=== PATIENT | male | born 1945 | race Caucasian/White ===

== ENCOUNTER 2019-06-03 16:34 | Observation (INO) | payer BC, SELFPAY ==
--- NOTE | ~2019-06-03 | US_ITS ---
EXAMINATION: US venous doppler LE RT DATE: 06/03/2019 17:14 INDICATION: Right lower limb swelling TECHNIQUE: Cardozo scale images without and with compression and Doppler images of the right lower extre mity veins were obtained. COMPARISON: None. FINDINGS: The right common femoral vein, profunda femoral vein, femoral vein, popliteal vein, peronea l trunk, posterior tibial veins, and greater saphenous vein are patent. A Schneider's cyst is noted which measures 3.3 x 1.9 cm. IMPRESSION: 1. Patent right lower extremity veins. No evidence of deep venous thrombosis. Reviewed, dictated and finalized at location A.
[2019-06-03 16:36] VITALS: BP 161/94; PULSE 80; RESP 18; TEMP 36.6; O2SAT 98
--- NOTE | 2019-06-03 16:56 | ED.LOWEXIN ---
HPI - Extremity Injury (Lower) General Chief Complaint: Extremity Injury, Lower <Bud Day PA-C - Last Filed: 06/03/19 19:27> Stated Complaint: right knee pain and swelling <Bud Day PA-C - Last Filed: 06/03/19 19:27> Time Seen by Provider: 06/03/19 16:41 <Bud Day PA-C - Last Filed: 06/03/19 19:27> Source: patient and family <Bud Day PA-C - Last Filed: 06/03/19 19:27> Mode of arrival: ambulatory <LIDA Montes Last Filed: 06/03/19 19:27> Limitations: no limitations <LIDA Montes Last Filed: 06/03/19 19:27> History of Present Illness HPI Narrative: Patient presents with chief complaint of swelling and pain to the lower thigh to the ankle of the right leg. Patient states the area has become more red and swollen. Patient states that he thought that it was getting better but his feels it was worsening so she made him come to the emergency department. 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 Patient reports that this week he has had some fever. Patient reports taking Dang back and body 2 tablets the past few days for his symptoms. Patient denies history of DVT or PE. Patient denies having diabetes. Patient reports his only medical diagnosis is hypertension. <LIDA Montes Last Filed: 06/03/19 19:27> Related Data Home Medications: Home Medications Medication Instructions Recorded Confirmed qjmovneq-yim-WN-lycopen-lutein 1 tablet PO DAILY 06/03/19 06/03/19 [Complete Multi 50+] omega 6-cxe-qxu-fish oil [Fish Oil] 1 cap PO DAILY 06/03/19 06/03/19 <LIDA Montes Last Filed: 06/03/19 19:27> Allergies/Adverse Reactions: Allergies Allergy/AdvReac Type Severity Reaction Status Date / Time No Known Allergies Allergy Unknown Unverified 06/03/19 17:36 <Bud Day PA-C - Last Filed: 06/03/19 19:27> Review of Systems Review of Systems: Narrative: CONSTITUTIONAL: Denies fever, chills, or sweats. EYES: Denies visual changes, redness, or discharge. ENT: Denies rhinorrhea, congestion, sore throat, or otalgia. CARDIOVASCULAR: Denies chest pain, palpitations, or edema. RESPIRATORY: Denies cough or dyspnea. GASTROINTESTINAL: Denies abdominal pain, nausea, vomiting, or diarrhea. GENITOURINARY: Denies dysuria or hematuria. SKIN: Reports swelling erythema and pain to right leg MUSCULOSKELETAL: Denies back pain, joint pain, or myalgia. NEUROLOGIC: Denies headache, numbness, dizziness, or weakness. PSYCHIATRIC: Denies anxiety or depression. <Bud Day PA-C - Last Filed: 06/03/19 19:27> [facility] Past Medical History Medical History: Medical History (Updated 06/03/19 @ 22:43 by Autumn Carvalho DO) BPH (benign prostatic hyperplasia) Dyslipidemia, goal LDL below 100 Essential (primary) hypertension Resolved after losing 100 lb Hypercholesterolemia Obstructive sleep apnea (adult) (pediatric) Patient had a repeat sleep study after losing 100 lb. His last sleep study May 2016 was negative for sleep apnea Overweight (10/03/16) Prediabetes Umbilical hernia <Bud Day PA-C - Last Filed: 06/03/19 19:27> Surgical History Surgical History: Surgical History History of laparoscopic cholecystectomy <Bud Day PA-C - Last Filed: 06/03/19 19:27> Family History Family History: Family History (Updated 06/03/19 @ 22:56 by Autumn Carvalho DO) Mother Morbid obesity Patient is adopted so family history is limited. His half-sister told him that his mother of complications of a leg surgery at 60 years old and was morbidly obese. Daughter Asthma <Bud Day PA-C - Last Filed: 06/03/19 19:27> Social History Social History: Social History (Updated 06/03/19 @ 22:46 by Autumn Carvalho DO) Social History:
[2019-06-03 17:03] LABS: Basophils Percent Auto 0.2 % (0.2-1.2); Eosinophils Absolute Auto 0.2 K/mm3 (0-0.3); Eosinophils Percent Auto 1.8 % (0-4.4); Hematocrit 35.5 % (42.0-52.0); Immature Granulocyte Percent A 1.1 % (0-0.5); Lymphocytes Absolute Auto 1.28 K/mm3 (0.9-3.2); Lymphocytes Percent Auto 13.8 % (18.3-44.2); Mean Corpuscular HGB Conc 33.8 g/dl (32-36); Mean Corpuscular Hemoglobin 30.8 pg (26-34); Mean Corpuscular Volume 91.3 fl (80-100); Mean Platelet Volume 9.6 fl (7.4-10.4); Monocytes Absolute Auto 0.8 K/mm3 (0.1-0.6); Monocytes Percent Auto 8.6 % (2.6-8.5); Neutrophils Absolute Auto 6.9 K/mm3 (1.3-6.7); Neutrophils Percent Auto 74.5 % (45.5-73.1); Platelet Count Result 401 k/mm3 (150-375); Red Blood Count 3.89 M/mm3 (4.6-6.20); Red Cell Distribution Width 12.4 % (11.5-14.5); White Blood Count 9.3 K/mm3 (4.5-10.0)
[2019-06-03 17:13] LABS: Alanine Aminotransferase 20 U/L (4-50); Albumin Level 3.8 g/dL (3.5-5.1); Alkaline Phosphatase 76 U/L (38-126); Aspartate Amino Transferase 25 U/L (17-59); Bilirubin,Total 0.2 mg/dL (0.2-1.3); Blood Urea Nitrogen 19 mg/dL (9-20); Calcium 8.8 mg/dL (8.4-10.2); Carbon Dioxide 28 mmol/L (22-30); Chloride 103 mmol/L (98-107); Estimated CRCL calculation 77 ml/min; Estimated Glomerular Filt Rate > 60; Glucose 124 mg/dL (75-110); Potassium 4.1 mmol/L (3.4-5.0); Sodium 137 mmol/L (137-145)
[2019-06-03 18:11] VITALS: BP 133/78; PULSE 64; RESP 18; O2SAT 95
[2019-06-03 19:39] VITALS: BP 141/88; PULSE 67; RESP 18; O2SAT 99
[2019-06-03 20:02] VITALS: BMI 31.3
--- NOTE | 2019-06-03 20:09 | ADMGEN ---
This patient, Lev Winchester, was admitted to Medical Room 341-01. Patient/family oriented to hospital policies and general routines including ID bracelet, bed and alarms, visiting hours, pain management, procedures, bathroom and other care routines, personal items, smoking policy, room service/diet, and visiting hours. Valuables list has been completed. Information on how to activate the Rapid Response Team has been discussed. Patient/Family are encouraged to report perceived risks to care and to ask questions if they do not understand what they are told or what they should do.
[2019-06-03 20:18] VITALS: BP 156/80; PULSE 61; RESP 14; TEMP 36.6; O2SAT 98
--- NOTE | 2019-06-03 21:10 | PM.IMHP ---
H&P: [facility] History of Present Illness Chief complaint: Right leg redness and swelling Narrative: Date and time of patient contact: 06/03/2019 at 9:30 p.m. Lev Winchester is a 73 year old male with a past medical history of varicose veins, obesity and prediabetes who presented to the ER via private vehicle from home due to right leg redness, swelling and heat for the last 2.5 weeks. The patient called his primary care physician after his had noticed the redness on his leg. The patient was directed to come to the ER. He reports that he has been busy for the last couple of weeks putting new saul in his home. He had been up been down on his knees. He noticed some swelling to his right lower extremity and right knee. The right knee was initially so swollen that it was tight. He reports that initially he had erythema extending from his mid rangel up over his knee. However a few days ago the erythema had receded from his knee and was only on his rangel. Over the last 4 5 days he was having some chills but had checked his temperature and it was normal. He thought that his symptoms were due to being on his knees a lot and found to way to finish his floor work without kneeling. He thought that this has seemed to help his symptoms. He finished his floor a few days ago and has been relaxing more. Since he has been relaxing and keeping his legs up falling on the couch he has noticed that his leg swelling has improved and the erythema had receded from his knee as discussed above. He reports that when he came into the ER his lower leg was so swollen that he could not even see is varicose veins. He thinks the erythema and swelling has improved since he came to the ER. The patient had previously been morbidly obese but had lost 100 lb over the course of 4 5 years. With the weight loss he has been able to discontinue his antihypertensives. It also had a repeat sleep study in 2017 which demonstrated resolution of his obstructive sleep apnea. He states that he is no longer prediabetic since losing weight. He also reports that his cholesterol has normalized with weight loss. He does have some decreased urinary stream that occurs mostly at night. He gets up approximately twice a night to urinate. Review of Systems Review of Systems: Narrative: Except as documented in the HPI, all other systems were reviewed and are negative. ON LICENSE OF [facility] Past Medical History Medical History (Updated 06/03/19 @ 22:43 by Autumn Carvalho DO) BPH (benign prostatic hyperplasia) Dyslipidemia, goal LDL below 100 Essential (primary) hypertension Resolved after losing 100 lb Hypercholesterolemia Obstructive sleep apnea (adult) (pediatric) Patient had a repeat sleep study after losing 100 lb. His last sleep study May 2016 was negative for sleep apnea Overweight (10/03/16) Prediabetes Umbilical hernia Surgical History Surgical History History of laparoscopic cholecystectomy Family History Family History (Updated 06/03/19 @ 22:56 by Autumn Carvalho DO) Mother Morbid obesity Patient is adopted so family history is limited. His half-sister told him that his mother of complications of a leg surgery at 60 years old and was morbidly obese. Daughter Asthma Social History Social History (Updated 06/03/19 @ 22:46 by Autumn Carvalho DO) Social History: Primary care physician: Dr. Juan Cruz Code status: Full code Smoking status: Never smoker Alcohol intake: current Drinks per week: 1 Alcohol use details: 1 beer a month. Substance use: never Living arrangements: with family Additional living arrangements comments: He lives in [place] with his of 54 years. They have a boxer at home. He has 2 adult children. His daughter has asthma. Occupation/Education: retired Additional occupation/education comments: He retired from the post office in 2001.
[2019-06-04 05:34] VITALS: BP 126/61; PULSE 61; RESP 16; TEMP 36.4; O2SAT 97
[2019-06-04 05:37] LABS: Basophils Percent Auto 0.4 % (0.2-1.2); Eosinophils Absolute Auto 0.2 K/mm3 (0-0.3); Eosinophils Percent Auto 2.3 % (0-4.4); Hematocrit 33.2 % (42.0-52.0); Hemoglobin 11.2 g/dL (14.0-18.0); Immature Granulocyte Absolute 0.09 K/mm3 (0.00-0.031); Immature Granulocyte Percent A 1.2 % (0-0.5); Lymphocytes Percent Auto 17.6 % (18.3-44.2); Mean Corpuscular HGB Conc 33.7 g/dl (32-36); Mean Corpuscular Hemoglobin 31.2 pg (26-34); Mean Corpuscular Volume 92.5 fl (80-100); Mean Platelet Volume 9.3 fl (7.4-10.4); Monocytes Absolute Auto 0.7 K/mm3 (0.1-0.6); Monocytes Percent Auto 9.7 % (2.6-8.5); Neutrophils Absolute Auto 5.1 K/mm3 (1.3-6.7); Neutrophils Percent Auto 68.8 % (45.5-73.1); Platelet Count Result 376 k/mm3 (150-375); Red Blood Count 3.59 M/mm3 (4.6-6.20); Red Cell Distribution Width 12.1 % (11.5-14.5); White Blood Count 7.4 K/mm3 (4.5-10.0)
[2019-06-04 06:20] LABS: CRP 11.9 mg/dL (<1.0)
[2019-06-04 08:49] VITALS: RESP 16; O2SAT 97
[2019-06-04] MEDS: OPTI-GEN TAB 1 TABLET PO (08:49)
[2019-06-04] MEDS: OMEGA 3 POLYUNSAT FATTY ACIDS 1 GM CAP PO (08:49)
--- NOTE | 2019-06-04 12:17 | PM.IMPN ---
Progress Note: A&P Assessment and Plan (1) Cellulitis of leg, right: Code(s): L03.115 - Cellulitis of right lower limb Status: Acute Assessment and Plan: The patient had been having worsening erythema and swelling for the last 2 weeks. Patient was started on IV cefazolin in the emergency department and he has not received 24 hours of the medication at this point. Patient's initial CBC showed no leukocytosis but elevated neutrophils. Repeat CBC this morning showed neutrophils normalized. Blood cultures pending. Continuing to monitor the patient's erythema and swelling at this point since there is not much improvement at this time. Continue monitoring over the next 1-2 days and if improving can switch to oral antibiotics and he can be discharged home. Time Spent With Patient Time with patient: 25 - 35 minutes Subjective Date/time seen: 06/04/19 12:17 Interval history: Date of service 06/04/2019: He reports feeling better today and noticing only slight improvement of his leg swelling and redness since admission. He has been able to move his knee more but his right lower extremity is still warm, red and swollen. He denies any fevers or chills at this time. He is eating and drinking without any issues. He denies any chest pain, shortness of breath, cough, rhinorrhea, nausea, vomiting, abdominal pain, constipation, diarrhea, calf pain or any other symptoms at this time. Review of Systems Review of Systems: All systems reviewed & are unremarkable except as noted in HPI and below Exam Narrative: Exam Narrative: General: 73-year-old man sitting up in bed eating lunch with his at bedside. Appears comfortable. In no acute distress. Skin: See lower extremity. no jaundice or cyanosis. Good skin turgor. Neck: Full range of motion. Supple. Respiratory: Lungs are clear to auscultation bilaterally. No bony chest wall tenderness. Cardiovascular: The heart has a regular rate and rhythm without murmur. Lower extremities: Right lower extremity with 2 to 3+ pitting edema, erythema noted to anterior proximal rangel measuring about 10 cm long and 7 cm wide , then with light erythema noted around lateral calf and slight extension to medial calf. No trauma noted, open wounds, weeping wounds. No left lower extremity edema. Distal pulses are easily palpated. No calf tenderness to palpation. Gastrointestinal: The abdomen is soft, nontender and nondistended with active bowel sounds. Psychiatric: Lucid and oriented. Memory intact. Neurologic: No focal deficits. Speech is clear. No facial drooping. Objective Data Vital Signs Vital Signs: Vital Signs - 24 hr 06/03/19 16:36 06/03/19 18:11 06/03/19 19:39 Temperature 97.8 F Pulse Rate 80 64 67 Respiratory Rate 18 18 18 Blood Pressure 161/94 H 133/78 141/88 H Pulse Oximetry 98 95 99 06/03/19 20:18 06/04/19 05:34 Temperature 97.8 F 97.6 F Pulse Rate 61 61 Respiratory Rate 14 16 Blood Pressure 156/80 H 126/61 Pulse Oximetry 98 97 Intake/Output Intake/Output: Intake & Output 06/01/19 06/02/19 06/03/19 06/04/19 23:59 23:59 23:59 23:59 Intake Total 562 Output Total 975 Balance -413 Meds/Results Medications: Active Medications Generic Name Dose Route Start Last Admin Trade Name Freq PRN Reason Stop Dose Admin Fish Oil 1 gm 06/04/19 09:00 06/04/19 08:49 Lovaza PO 1 gm DAILY LARRY Administration Cefazolin Sodium 1 gm in 50 mls @ 100 mls/hr 06/04/19 08:00 06/04/19 09:20 Ancef 1 Gm/D5w 50 Ml Pm IVPB Infused Q8HR LARRY Infusion Multivitamins/Minerals 1 tablet 06/04/19 09:00 06/04/19 08:49 Ocuvite PO 1 tablet DAILY LARRY Administration Radiology Results: ITS Impressions Venous Doppler Study 06/03/19 17:28 IMPRESSION: 1. Patent right lower extremity veins. No evidence of deep venous thrombosis. Labs Labs: Laboratory Results - last 24 hr 06/03/19 06/03/19 06/04/19 16:54 16:54
[2019-06-04 14:00] VITALS: BP 137/71; PULSE 59; RESP 18; TEMP 36.2; O2SAT 97
[2019-06-04 20:00] VITALS: PULSE 60; RESP 16; O2SAT 97
[2019-06-04 20:40] VITALS: BP 137/74; PULSE 60; RESP 16; TEMP 36.8; O2SAT 97
[2019-06-05 06:00] VITALS: BP 135/81; PULSE 74; RESP 16; TEMP 36.3; O2SAT 96
[2019-06-05 06:38] LABS: Basophils Percent Auto 0.3 % (0.2-1.2); Eosinophils Absolute Auto 0.1 K/mm3 (0-0.3); Hematocrit 37.9 % (42.0-52.0); Hemoglobin 12.6 g/dL (14.0-18.0); Immature Granulocyte Absolute 0.09 K/mm3 (0.00-0.031); Immature Granulocyte Percent A 0.8 % (0-0.5); Lymphocytes Absolute Auto 1.58 K/mm3 (0.9-3.2); Lymphocytes Percent Auto 14.2 % (18.3-44.2); Mean Corpuscular HGB Conc 33.2 g/dl (32-36); Mean Corpuscular Hemoglobin 30.7 pg (26-34); Mean Corpuscular Volume 92.4 fl (80-100); Mean Platelet Volume 9.8 fl (7.4-10.4); Monocytes Absolute Auto 0.7 K/mm3 (0.1-0.6); Monocytes Percent Auto 6.2 % (2.6-8.5); Neutrophils Absolute Auto 8.6 K/mm3 (1.3-6.7); Neutrophils Percent Auto 77.5 % (45.5-73.1); Platelet Count Result 444 k/mm3 (150-375); Red Cell Distribution Width 12.3 % (11.5-14.5); White Blood Count 11.1 K/mm3 (4.5-10.0)
[2019-06-05 06:57] LABS: CRP 7.6 mg/dL (<1.0)
[2019-06-05] MEDS: OMEGA 3 POLYUNSAT FATTY ACIDS 1 GM CAP PO (08:05)
[2019-06-05] MEDS: OPTI-GEN TAB 1 TABLET PO (08:05)
--- NOTE | 2019-06-05 09:15 | PM.DS ---
DS: Diagnosis Admitting Diagnosis Admitting Diagnosis: Cellulitis of right lower limb Discharge Diagnosis (1) Cellulitis of leg, right: Code(s): L03.115 - Cellulitis of right lower limb Status: Acute Assessment and Plan: The patient had been having worsening erythema and swelling for the last 2 weeks. Patient was started on IV cefazolin in the emergency department Today, he reports much improvement to the warmth and erythema to his leg. He is otherwise asymptomatic. The patients leukocytosis increased to 11,100 and neutrophils elevated to 77%, but clinically his leg is improving and he is feeling much better. The patients CRP improved from 11.9 to 7.6 showing improvement. At this point, since the patient is clinically improving, will have him discharge home with PO Keflex for 7 more days and have him follow up with his PCP for further evaluation. Blood cultures show no growth at this time. The patient understands and agrees with the plan at this time for discharge. All questions answered. DS: Summary Hospital Course Reason for hospitalization: The patient is a 73-year-old man who is on no chronic medications, presented to the emergency department with a 2 week history of increased swelling, erythema and warmth after working on his knees putting down new saul. Initial vitals showed temperature of 97.8?, blood pressure 161/94, heart rate 80, respiratory rate 18, oxygen saturation 98% on room air. Initial labs showed no leukocytosis with WBC at 9300 elevated neutrophils at 74%, slight anemia with a hemoglobin of 12/hematocrit 35.5%, normal CMP other than glucose at 124. CRP was checked which showed it was elevated 11.9, repeat CRP today was 7.6. Venous Doppler showing no DVT to the right lower extremity. The patient was started on IV Ancef with improvement of his erythema, swelling and warmth since admission. He is otherwise asymptomatic at this time it will be discharged home on oral Keflex for another 7 days. Instructed to follow-up with primary care provider within 1-2 weeks for further evaluation treatment. Blood cultures have been ordered and show no growth at this time. The patient understands agrees the plan at this time for discharge on oral antibiotics. Status at Discharge Cognitive/behavioral status at discharge: Stable, improved. Time Spent with Patient Time attestation: Total time spent providing and/or coordinating discharge services: Time spent: Greater than 30 minutes Exam Narrative: Exam Narrative: General: 73-year-old man sitting up in bed eating breakfast and watching TV. Appears comfortable. In no acute distress. Skin: See lower extremity. no jaundice or cyanosis. Good skin turgor. Neck: Full range of motion. Supple. Respiratory: Lungs are clear to auscultation bilaterally. No bony chest wall tenderness. Cardiovascular: The heart has a regular rate and rhythm without murmur. Lower extremities: Right lower extremity with 1-2+ pitting edema, much improved erythema 6 cm long and 4 cm wide, with much improved, barely noticeable erythema noted around lateral calf and in no erythema noticed to medial calf. No trauma noted, open wounds, weeping wounds. No left lower extremity edema. Distal pulses are easily palpated. No calf tenderness to palpation. Gastrointestinal: The abdomen is soft, nontender and nondistended with active bowel sounds. Psychiatric: Lucid and oriented. Memory intact. Neurologic: No focal deficits. Speech is clear. No facial drooping. DS: Data Data Completed and Pending Labs on day of discharge: Labs from last 24 hours 06/05/19 06/05/19 05:44 05:44 WBC 11.1 H RBC 4.10 L Hgb 12.6 L Hct 37.9 L MCV 92.4 MCH 30.7 MCHC 33.2 RDW 12.3 Plt Count 444 H MPV 9.8 Immature Gran % (Auto) 0.8 H Neut % (Auto) 77.5 H Lymph % (Auto) 14.2 L [place] % (Auto) 6.2 Eos % (Auto) 1.0 Baso % (Auto)
--- NOTE | 2019-06-15 11:07 | PC.NURSE ---
Aerobic bottle only growing Roseomonas species. IDA Lovell aware.
== END 2019-06-05 11:10 | disposition home or self-care (01) ==
LOC: ANHED 19:06 → ANH3MED 19:20
PROVIDERS: Internal Medicine; Physician Assistant; Admitting Provider Hospitalist; Emergency Provider Emergency Medicine; PCP Internal Medicine; Visit Provider Internal Medicine
DX: L03.115 Cellulitis of right lower limb (principal)
CPT/HCPCS: 36415; 80053; 85025; 86140; 87040; 87077; 93971; 96365; 96366; 99285; A9270; G0378; J0690

== ENCOUNTER 2019-09-23 07:37 | Outpatient (CLI) | payer BC, SELFPAY ==
[2019-09-23 07:55] LABS: Hematocrit 38.8 % (42.0-52.0); Hemoglobin 13.2 g/dL (14.0-18.0); Mean Corpuscular Hemoglobin 30.8 pg (26-34); Mean Corpuscular Volume 90.4 fl (80-100); Mean Platelet Volume 9.7 fl (7.4-10.4); Platelet Count Result 199 k/mm3 (150-375); Red Blood Count 4.29 M/mm3 (4.6-6.20); Red Cell Distribution Width 12.9 % (11.5-14.5); White Blood Count 4.9 K/mm3 (4.5-10.0)
[2019-09-23 08:13] LABS: Alanine Aminotransferase 17 U/L (4-50); Albumin Level 4.3 g/dL (3.5-5.1); Alkaline Phosphatase 53 U/L (38-126); Aspartate Amino Transferase 25 U/L (17-59); Bilirubin,Total 0.5 mg/dL (0.2-1.3); Blood Urea Nitrogen 16 mg/dL (9-20); Calcium 8.8 mg/dL (8.4-10.2); Carbon Dioxide 27 mmol/L (22-30); Chloride 104 mmol/L (98-107); Cholesterol 173 mg/dL (0-200); Estimated Glomerular Filt Rate > 60; Glucose 105 mg/dL (75-110); HDL Direct 55 mg/dL; Sodium 137 mmol/L (137-145); Triglycerides 70 mg/dL (<150)
[2019-09-23 08:24] LABS: LDL Cholesterol Direct 89 mg/dL
[2019-09-23 11:07] LABS: Prostate Specific Antigen 5.4 ng/mL (< OR = 4.0)
== END 2019-09-23 07:38 | disposition home or self-care (01) ==
PROVIDERS: PCP Internal Medicine; Visit Provider Nurse Practitioner
DX: E78.5 Hyperlipidemia, unspecified (principal); I10 Essential (primary) hypertension; R97.20 Elevated prostate specific antigen [PSA]
CPT/HCPCS: 36415; 80053; 80061; 84153; 85027

== ENCOUNTER 2019-12-31 08:14 | Outpatient (CLI) | payer BC, SELFPAY ==
[2019-12-31 09:22] LABS: Prostate Specific Antigen 3.5 ng/mL (< OR = 4.0)
== END 2019-12-31 08:15 | disposition home or self-care (01) ==
PROVIDERS: PCP Internal Medicine; Visit Provider Internal Medicine
DX: R97.20 Elevated prostate specific antigen [PSA] (principal)
CPT/HCPCS: 36415; 84153

== ENCOUNTER 2020-03-29 07:10 | Outpatient (CLI) | payer BC, SELFPAY ==
[2020-03-29 07:44] LABS: Anion Gap 5 mmol/L (8-16); Blood Urea Nitrogen 18 mg/dL (9-20); Carbon Dioxide 30 mmol/L (22-30); Chloride 106 mmol/L (98-107); Cholesterol 178 mg/dL (0-200); Estimated Glomerular Filt Rate > 60; Glucose 102 mg/dL (75-110); HDL Direct 64 mg/dL; Hemoglobin A1C 5.5 % (<5.7); Potassium 4.2 mmol/L (3.4-5.0); Sodium 141 mmol/L (137-145); Triglycerides 91 mg/dL (<150)
[2020-03-29 07:55] LABS: LDL Cholesterol Direct 83 mg/dL
[2020-03-29 08:15] LABS: Prostate Specific Antigen 3.8 ng/mL (< OR = 4.0)
== END 2020-03-29 07:11 | disposition home or self-care (01) ==
PROVIDERS: PCP Internal Medicine; Visit Provider Internal Medicine
DX: I10 Essential (primary) hypertension (principal); R73.03 Prediabetes; R97.20 Elevated prostate specific antigen [PSA]; E78.5 Hyperlipidemia, unspecified
CPT/HCPCS: 36415; 80048; 80061; 83036; 84153

== ENCOUNTER 2020-09-26 07:12 | Outpatient (CLI) | payer BC, SELFPAY ==
[2020-09-26 08:11] LABS: Alanine Aminotransferase 22 U/L (4-50); Albumin Level 4.6 g/dL (3.5-5.1); Alkaline Phosphatase 55 U/L (38-126); Anion Gap 7 mmol/L (8-16); Aspartate Amino Transferase 26 U/L (17-59); Bilirubin,Total 0.6 mg/dL (0.2-1.3); Blood Urea Nitrogen 12 mg/dL (9-20); Calcium 9.5 mg/dL (8.4-10.2); Carbon Dioxide 26 mmol/L (22-30); Chloride 106 mmol/L (98-107); Cholesterol 202 mg/dL (0-200); Estimated Glomerular Filt Rate > 60; Glucose 112 mg/dL (75-110); HDL Direct 61 mg/dL; Potassium 4.3 mmol/L (3.4-5.0); Sodium 139 mmol/L (137-145); Triglycerides 100 mg/dL (<150)
[2020-09-26 08:14] LABS: Hemoglobin A1C 5.6 % (<5.7)
[2020-09-26 08:22] LABS: LDL Cholesterol Direct 96 mg/dL
== END 2020-09-26 07:13 | disposition home or self-care (01) ==
LOC: ANHLAB 07:14
PROVIDERS: PCP Internal Medicine; Visit Provider Nurse Practitioner
DX: R73.02 Impaired glucose tolerance (oral) (principal); E78.5 Hyperlipidemia, unspecified
CPT/HCPCS: 36415; 80053; 80061; 83036

== ENCOUNTER 2021-03-30 07:25 | Outpatient (CLI) | payer BC, SELFPAY ==
[2021-03-30 07:53] LABS: Anion Gap 7 mmol/L (8-16); Blood Urea Nitrogen 14 mg/dL (9-20); Calcium 9.1 mg/dL (8.4-10.2); Carbon Dioxide 29 mmol/L (22-30); Chloride 104 mmol/L (98-107); Cholesterol 182 mg/dL (0-200); Estimated Glomerular Filt Rate > 60; Glucose 106 mg/dL (65-110); HDL Direct 60 mg/dL; Sodium 140 mmol/L (137-145); Triglycerides 95 mg/dL (<150)
[2021-03-30 08:01] LABS: Hemoglobin A1C 5.8 % (<5.7)
[2021-03-30 08:04] LABS: LDL Cholesterol Direct 92 mg/dL
[2021-03-30 08:22] LABS: Prostate Specific Antigen 4.7 ng/mL (< OR = 4.0)
== END 2021-03-30 07:26 | disposition home or self-care (01) ==
PROVIDERS: PCP Internal Medicine; Visit Provider Internal Medicine
DX: R73.02 Impaired glucose tolerance (oral) (principal); Z12.5 Encounter for screening for malignant neoplasm of prostate; E78.5 Hyperlipidemia, unspecified
CPT/HCPCS: 36415; 80048; 80061; 83036; 84153; G0103

== ENCOUNTER 2021-05-11 18:57 | Emergency (ER) | payer BC, SELFPAY ==
--- NOTE | ~2021-05-11 | XR_ITS ---
EXAMINATION: XR shoulder RT min 2V INDICATION: Right shoulder pain TECHNIQUE: Five views of the right shoulder are submitted. COMPARISON: None FINDINGS: Normal alignment. No fracture. There is advanced osteoarthritis of the acromioclavicular elizabet int and moderate osteoarthritis of the glenohumeral joint. Soft tissues are unremarkable. IMPRESSION: 1. No acute osseous abnormality. Reviewed, dictated and finalized at location F. [facility] CALCINER
[2021-05-11 19:05] VITALS: BP 153/90; PULSE 59; RESP 18; TEMP 36.5; O2SAT 97
--- NOTE | 2021-05-11 19:07 | ED.FALL ---
HPI - Fall General Chief Complaint: Fall Stated Complaint: fall Time Seen by Provider: 05/11/21 19:15 Source: patient Mode of arrival: ambulatory Limitations: no limitations History of Present Illness HPI Narrative: Lev Winchester is a 75 yo male with PMH of HTN, BPH, high cholesterol, who comes to express care after fall on R shoulder in back yard while walking dog. Occurred 45 minutes ago. Related Data Home Medications Medication Instructions Recorded Confirmed Complete Multi 50+ 1 tablet PO DAILY 06/03/19 05/11/21 omega 8-sqg-dnp-fish oil [Fish Oil] 1 cap PO DAILY 06/03/19 05/11/21 Allergies Allergy/AdvReac Type Severity Reaction Status Date / Time No Known Allergies Allergy Unknown Verified 04/12/21 07:37 Review of Systems Review of Systems: CONSTITUTIONAL: Denies fever, chills, sweats. EYES: Denies visual changes, redness, discharge. ENT: Denies rhinorrhea, congestion, sore throat, otalgia. CARDIOVASCULAR: Denies chest pain, palpitations, edema. RESPIRATORY: Denies dyspnea, wheezing, cough GASTROINTESTINAL: Denies abdominal pain, nausea, vomiting, diarrhea. GENITOURINARY: Denies dysuria, hematuria, abnormal discharge SKIN: Denies rash or itching. NEUROLOGIC: Denies numbness, or focal weakness. PSYCHIATRIC: Denies anxiety or depression. Right shoulder pain after fall and backyard on ice PMFSH Past Medical History Medical History BPH (benign prostatic hyperplasia) Dyslipidemia, goal LDL below 100 Essential (primary) hypertension Resolved after losing 100 lb Hypercholesterolemia Obstructive sleep apnea (adult) (pediatric) Patient had a repeat sleep study after losing 100 lb. His last sleep study May 2016 was negative for sleep apnea Overweight (10/03/16) Prediabetes Umbilical hernia Surgical History Surgical History History of laparoscopic cholecystectomy Family History Family History Mother Morbid obesity Patient is adopted so family history is limited. His half-sister told him that his mother of complications of a leg surgery at 60 years old and was morbidly obese. Daughter Asthma Social History Social History (Reviewed 04/12/21 @ 07:37 by OLIVIER Javed Social History: Primary care physician: Dr. Juan Cruz Code status: Full code Smoking status: Never smoker Alcohol intake: current Drinks per week: 1 Alcohol use details: 1 beer a month. Substance use: never Substance use type: does not use Additional living arrangements comments: He lives in [place] with his of 54 years. They have a boxer at home. He has 2 adult children. His daughter has asthma. Additional occupation/education comments: He retired from the post office in 2001. Gender identity (if verbalized by the patient): Male Spiritual care concerns: No Agree to blood products: Yes Comments At time of signature, I agree with nursing past medical, surgical, social and family history. There is no relevant family history pertinent to the presenting complaint. Exam Narrative: GENERAL: This is a well-nourished, well-developed patient, in mild distress. HEAD: normocephalic, atraumatic. EYES: PERRL. Sclera clear/white. Vision is grossly intact. EARS: External ears normal, auditory canals clear and without drainage, TMs normal without perforation. Hearing grossly intact. NOSE: External nose normal without nasal discharge, nares without redness, no rhinorrhea. THROAT: Mucous membranes moist, posterior pharynx NECK: Neck supple, non-tender CARDIOVASCULAR: Regular rate and rhythm without murmurs, gallops, or rubs. RESPIRATORY: Clear to auscultation. Breath sounds equal bilaterally. No wheezes, rales, or rhonchi. GASTROINTESTINAL: Abdomen soft, non-tender, SKIN: warm, intact with no suspicious lesio
== END 2021-05-11 19:54 | disposition home or self-care (01) ==
PROVIDERS: Emergency Provider Nurse Practitioner; PCP Internal Medicine
DX: S49.91XA Unspecified injury of right shoulder and upper arm, initial encounter (principal); W19.XXXA Unspecified fall, initial encounter; Y93.K1 Activity, walking an animal; N40.0 Benign prostatic hyperplasia without lower urinary tract symptoms; E78.5 Hyperlipidemia, unspecified; E78.00 Pure hypercholesterolemia, unspecified; G47.33 Obstructive sleep apnea (adult) (pediatric); R73.03 Prediabetes
CPT/HCPCS: 73030; 99213; A4565; G0463

== ENCOUNTER 2021-07-24 08:00 | Outpatient (RCR) | payer BC, SELFPAY ==
[2021-06-19 08:54] VITALS: BP_SYST 155
--- NOTE | 2021-06-19 10:11 | PTOPEVAL ---
Thank you for referring Lev Winchester to [facility].? The patient is scheduled to be seen for therapy 2x/week for 5 weeks. Please review, sign, date and return this plan of care CARLOS. I agree with and certify that the following plan of care is medically necessary. Referring Physician Date Attending Provider: Juan Cruz DO Diagnosis right shoulder pain. Onset 05/11/21 Subjective Information Pt fell on black ice landing Query Text:As Reported By Patient/ on his right shoulder joint. Family He has used ice and over the counter medication needed for the pain. Reports improved pain and symptoms than initially. He reports limitations with sleeping on right side, reaching motions, and ADL's. Limitations with lifting objects overhead. Intermittent pain into biceps region. His hobbies include yardwork and working on cars.He swims 2x/wk and walks his dog daily. Pain Assessment Right Shoulder(s) Reported Pain Level 1 Pain Description Aching,Sharp Pain Frequency Continuous Lowest Pain Intensity 1 Greatest Pain Intensity 7 Pain Aggravating Factors ADL's,Lifting Upper Extremity Range of Motion Scapular/ Shoulder Range of Motion Right Shoulder Flexion - Active 140 Shoulder Flexion - Passive 170 Shoulder Extension - Active 55 Shoulder Abduction - Active 132 Shoulder Abduction - Passive 155 Shoulder Medial Rotation - Active 55 Shoulder Medial Rotation - Active T12:Reach Behind the Back Shoulder Lateral Rotation - Active 75 Shoulder Lateral Rotation - Active C7:Reach Behind the Head Scapular/Shoulder Range of Motion Pain Upper Extremity Muscle Strength Testing General Upper Extremity Strength Gross Upper Extremity Strength Comments left shoulder 5/5 except lateral rotation: 3+/5 Scapular/Shoulder Right Scapular Retraction - Middle Trapezius 2 Poor Scapular Retraction - Lower Trapezius 2 Poor Shoulder Flexion Strength 3+ Fair + Shoulder Extension Strength 4+ Good + Shoulder Abduction Strength 4- Good - Shoulder Medial Rotation Strength 4+ Good + Shoulder Lateral Rotation Strength 3 Fair Muscle Length Testing Muscle Length Testing Latissmus Dorsi Muscle Length (R) Moderate Tightness,(L) Moderate Tightness Pectoralis Major Muscle Length (R) Moderate Tightness,(L) Moderate Tightness Pectoralis
[2021-07-24 08:04] VITALS: BP_SYST 160
--- NOTE | 2021-07-24 08:54 | PTOPEVAL ---
Physical Therapy Discharge Summary Thank you for referring Lev Winchester to [facility]. Pt referred to therapy due to right shoulder pain from a recent fall. Lev has attended 11 therapy visits from 06/19/21 to 07/24/21. As a result of skilled therapy services he demonstrates slight improved shoulder motion, improved pain and improved vinicio with UE task. No changes noted with shoulder strength, but improved scapular stability strength. He has been instructed in a HEP and demonstrates compliance. His goals have been partially achieved at this time. He cont to demonstrates signs and symptoms consistent with internal derangement with shoulder impingement. Recommend he f/u with his doctor for the next step in his care. Will DC skilled PT services at this time. Shoulder Pain and Disability Index (SPADI) 44% impaired at eval and 7% impaired at update. Please review, sign, date and return this discharge summary CARLOS. I agree with and certify that the following plan of care is medically necessary. Referring Physician Date Attending Provider: Juan Cruz DO Diagnosis right shoulder pain. Onset 05/11/21 Additional Evaluation Detail Pt fell on black ice landing on his right shoulder joint. Subjective Information Denies any pain at night and Query Text:As Reported By Patient/ slight discomfort with Family sleeping on right shoulder. Improved reaching motions in all directions. He is able to carrying objects low or below waist level. He c/o limitations with lifting objects overhead. Intermittend pain into bicep region. Pain Assessment Self Report Pain Assessment Right Shoulder(s) Reported Pain Level 1 Pain Description Sharp,Soreness,Tightness Lowest Pain Intensity 0 Greatest Pain Intensity 4 Upper Extremity Range of Motion Scapular/ Shoulder Range of Motion Right Shoulder Flexion - Active 145 Shoulder Flexion - Passive 170 Shoulder Extension - Active 38 Shoulder Abduction - Active 150 Shoulder Abduction - Passive 160 Shoulder Medial Rotation - Active 60 Shoulder Medial Rotation - Active T10:Reach Behind the Back Shoulder Lateral Rotation - Active 70 Shoulder Lateral Rotation - Active C7:Reach Behind the Head Scapular/Shoulder Range of Motion Pain Limitations Upper Extremity Muscle Strength Testing Scapular/Shoulder Right Scapular Retraction - Middle Trapezius 2+ Poor + Scapular Retraction - Lower Trapezius 2 Poor Shoulder Flexion Strength 3+ Fair + Shoulder Extension Strength 4+ Good + Shoulder Abduction Strength 4- Good - Shoulder Medial Rotation Strength 4+ Good + Shoulder Lateral Rotation Strength 3 Fair Palpation Assessment Palpation no tenderness of teres min/
== END 2021-07-24 13:50 | disposition home or self-care (01) ==
LOC: ANHPT 08:00
PROVIDERS: PCP Internal Medicine; Visit Provider Internal Medicine
DX: S49.91XD Unspecified injury of right shoulder and upper arm, subsequent encounter (principal)
CPT/HCPCS: 97032; 97035; 97110; 97112; 97140; 97161

== ENCOUNTER 2021-10-10 07:47 | Outpatient (CLI) | payer BC, SELFPAY ==
[2021-10-10 09:51] LABS: Prostate Specific Antigen 4.4 ng/mL (< OR = 4.0)
== END 2021-10-10 07:48 | disposition home or self-care (01) ==
PROVIDERS: PCP Internal Medicine; Visit Provider Nurse Practitioner
DX: R97.20 Elevated prostate specific antigen [PSA] (principal)
CPT/HCPCS: 36415; 84153

== ENCOUNTER → 2021-12-14 12:57 | Outpatient (CLI) | payer BC, SELFPAY ==
--- NOTE | ~2021-12-14 | MR_ITS ---
EXAMINATION: MR shoulder RT wo con DATE: 12/14/2021 13:34 INDICATION: Right shoulder pain. TECHNIQUE: Magnetic resonance imaging (MRI) of the right shoulder was performed without intravenous c ontrast. Sequences included axial PD-weighted FS FSE, coronal oblique PD-weighted FS FSE and T2-weigh weston FS FSE, and sagittal oblique T2-weighted FS FSE and T1-weighted FSE. COMPARISON: Right shoulder radiographs 11/26/2021 FINDINGS: Coracoacromial arch: The acromion undersurface is curved in morphology (type II). Subacromial spurring is noted. There is severe acromioclavicular joint osteoarthritis including inferiorly directed osteophytes. There is sev ere subacromial/subdeltoid bursitis. Rotator cuff: There is a full-thickness tear of supraspinatus and infraspinatus tendons measuring 4.1 cm anterior t o posterior by 4.3 cm proximal to distal. Teres minor tendon is normal. There is a small interstitial tear of subscapularis tendon superiorly. There is mild fatty atrophy of supraspinatus and infraspina tus muscle bellies. There is increased T2-weighted signal intensity in the supraspinatus and infraspi natus muscle bellies, likely subacute on chronic denervation. Biceps tendon and glenoid labrum: Biceps tendon is in bicipital groove. There is a complete tear of proximal biceps tendon. There is mu ltifocal tearing of the glenoid labrum. Fluid: There is a moderate-sized glenohumeral joint effusion. Bones/cartilage: There is shallow partial-thickness cartilage loss of humeral head and glenoid. IMPRESSION: 1. Full-thickness rotator cuff tear. 2. Mild glenohumeral joint chondrosis. 3. Complete tear of proximal biceps tendon. 4. Severe acromioclavicular joint osteoarthritis. 5. Moderate-sized glenohumeral joint effusion and severe subacromial/subdeltoid bursitis. Reviewed, dictated and finalized at location A.
== END ==
PROVIDERS: PCP Internal Medicine; Visit Provider Orthopaedic Surgery
DX: M25.511 Pain in right shoulder (principal); M75.121 Complete rotator cuff tear or rupture of right shoulder, not specified as traumatic; M94.8X1 Other specified disorders of cartilage, shoulder; S46.211A Strain of muscle, fascia and tendon of other parts of biceps, right arm, initial encounter; M19.011 Primary osteoarthritis, right shoulder; M25.411 Effusion, right shoulder; M75.51 Bursitis of right shoulder
CPT/HCPCS: 73221

== ENCOUNTER 2022-04-17 07:11 | Outpatient (CLI) | payer BC, SELFPAY ==
[2022-04-17 10:46] LABS: Alanine Aminotransferase 20 U/L (6-50); Albumin Level 4.2 g/dL (3.5-5.1); Alkaline Phosphatase 55 U/L (38-126); Anion Gap 5 mmol/L (8-16); Aspartate Amino Transferase 24 U/L (17-59); Bilirubin,Total 0.6 mg/dL (0.2-1.3); Blood Urea Nitrogen 13 mg/dL (9-20); Calcium 8.9 mg/dL (8.4-10.2); Carbon Dioxide 30 mmol/L (22-30); Chloride 106 mmol/L (98-107); Cholesterol 190 mg/dL (0-200); Estimated Glomerular Filt Rate > 60; Glucose 108 mg/dL (65-110); HDL Direct 59 mg/dL; Hemoglobin A1C 5.4 % (<5.7); LDL Cholesterol Direct 89 mg/dL; Potassium 4.1 mmol/L (3.4-5.0); Prostate Specific Antigen 5.7 ng/mL (< OR = 4.0); Sodium 141 mmol/L (137-145); Triglycerides 96 mg/dL (<150)
== END 2022-04-17 07:12 | disposition home or self-care (01) ==
PROVIDERS: Internal Medicine; PCP Internal Medicine; Visit Provider Internal Medicine
DX: E78.5 Hyperlipidemia, unspecified (principal); R73.02 Impaired glucose tolerance (oral); R97.20 Elevated prostate specific antigen [PSA]
CPT/HCPCS: 36415; 80053; 80061; 83036; 84153

== ENCOUNTER 2022-10-25 05:13 | Emergency (ER) | payer BC, SELFPAY ==
--- NOTE | 2022-10-25 05:34 | ED.MALEGU ---
HPI - Male Genitourinary General Chief complaint: Urogenital-Male Stated complaint: I have UTI Time Seen by Provider: 10/25/22 05:32 History of Present Illness HPI Narrative: Patient is a 76-year-old male presenting with urinary frequency. Patient states that he recently had a prostate biopsy and since that time has had urinary frequency and dysuria. States that he saw his urologist a couple of days ago and they placed him on ciprofloxacin. States that it initially seemed to be helping but last night he again had very frequent urination. States that it continues to burn. He complains of mild suprapubic soreness. No fevers, nausea or vomiting. States that he has had a couple episodes of diarrhea. Denies further complaints. Related Data Home Medications Medication Instructions Recorded Confirmed ehcblapp-put-lysiw acid 500 1 tablet PO DAILY 06/03/19 04/25/22 mcg-lycopene 300 mcg-lutein 250 mcg tablet (Complete Multi 50+) omega 4-tpy-pzx-fish oil 1,000 mg 1 cap PO DAILY 06/03/19 04/25/22 (120 mg-180 mg) capsule (Fish Oil) Allergies Allergy/AdvReac Type Severity Reaction Status Date / Time No Known Allergies Allergy Unknown Verified 04/25/22 07:43 Review of Systems Review of Systems: All systems reviewed & are unremarkable except as noted in HPI and below PMFSH Past Medical History Medical History BPH (benign prostatic hyperplasia) Dyslipidemia, goal LDL below 100 Essential (primary) hypertension Resolved after losing 100 lb Hypercholesterolemia Obstructive sleep apnea (adult) (pediatric) Patient had a repeat sleep study after losing 100 lb. His last sleep study May 2016 was negative for sleep apnea Overweight (10/03/16) Prediabetes Right shoulder injury Umbilical hernia Surgical History Surgical History History of laparoscopic cholecystectomy Family History Family History Mother Morbid obesity Patient is adopted so family history is limited. His half-sister told him that his mother of complications of a leg surgery at 60 years old and was morbidly obese. Daughter Asthma Social History Social History Social History: Primary care physician: Dr. Juan Curz Code status: Full code Smoking status: Never smoker Alcohol intake: current Drinks per week: 1 Alcohol use details: 1 beer a month. Substance use: never Substance use type: does not use Lack of Transportation: No Lack of Food: Never True Current Housing: I Have Housing Concerned About Future Housing: No Difficulty Paying Gas/Electric Bills: No Difficulty Paying for Meds: No Currently Unemployed: No Education: High School Diploma/GED Difficulty w/ Childcare or Family Care: No Living arrangements: with family Additional living arrangements comments: He lives in [place] with his of 54 years. They have a boxer at home. He has 2 adult children. His daughter has asthma. Occupation/Education: retired Additional occupation/education comments: He retired from the post office in 2001. Gender identity (if verbalized by the patient): Male Spiritual care concerns: No Agree to blood products: Yes Exam Narrative: GENERAL: Well-appearing, well-nourished, and in no acute distress. HEAD: Normocephalic, atraumatic. EYES: PERRLA and EOMI. ENT: Mucous membranes moist. NECK: Supple. CHEST: No respiratory distress. HEART: Regular rate and rhythm ABDOMEN: Soft, nontender, nondistended EXTREMITIES: Normal range of motion. No edema. SKIN: Warm, dry, no rash. NEURO: No focal deficits. Alert and oriented x3. PSYCH: Normal mood and affect. Course Vital Signs Vital signs: Vital Signs Pulse Rate 68 10/25/22 07:28 Respiratory Rate 15
[2022-10-25 06:04] LABS: Appearance Urine Cloudy (Clear); Bacteria Urine None Seen /hpf; Bilirubin Urine 1+ (Negative); Blood Urine 3+ (Negative); Color Urine Orange (Yellow); Glucose Urine UA Negative (Negative); Ketones Urine Negative (Negative); Leukocyte Esterase Ur 1+ LEU/UL (Negative); Mucus Urine Present /lpf; Nitrate Urine Positive (Negative); Non Pathogenic Casts 0-2; Protein Urine 1+ mg/dL (Negative); Specific Grav Ur 1.016 (1.001-1.035); Squamous Epithelial Cell Urine None seen /hpf (Few); WBC Urine 0-5 /hpf
[2022-10-25 06:06] LABS: Add Urine Microscopic? YES
[2022-10-25] MEDS: SULFAMETHOXAZOLE/TRIMETHOPRIM 800/160 MG DS TABLET 1 TAB PO (06:18)
[2022-10-25 07:28] VITALS: BP 114/78; PULSE 68; RESP 15; O2SAT 100
== END 2022-10-25 07:29 | disposition home or self-care (01) ==
PROVIDERS: Emergency Provider Emergency Medicine; PCP Nurse Practitioner
DX: N39.0 Urinary tract infection, site not specified (principal); E78.5 Hyperlipidemia, unspecified; I10 Essential (primary) hypertension
CPT/HCPCS: 51702; 81001; 99283; A9270

== ENCOUNTER 2023-04-24 07:17 | Outpatient (CLI) | payer BC, SELFPAY ==
[2023-04-24 08:09] LABS: Alanine Aminotransferase 21 U/L (6-50); Albumin Level 4.4 g/dL (3.5-5.1); Alkaline Phosphatase 58 U/L (38-126); Anion Gap 7 mmol/L (8-16); Aspartate Amino Transferase 25 U/L (17-59); Bilirubin,Total 0.8 mg/dL (0.2-1.3); Blood Urea Nitrogen 18 mg/dL (9-20); Calcium 9.2 mg/dL (8.4-10.2); Carbon Dioxide 25 mmol/L (22-30); Chloride 106 mmol/L (98-107); Cholesterol 199 mg/dL (0-200); Estimated Glomerular Filt Rate > 60; Glucose 130 mg/dL (65-110); HDL Direct 60 mg/dL; Sodium 138 mmol/L (137-145); Triglycerides 94 mg/dL (<150)
[2023-04-24 08:19] LABS: LDL Cholesterol Direct 102 mg/dL
== END 2023-04-24 07:18 | disposition home or self-care (01) ==
LOC: ANHLAB 07:18
PROVIDERS: PCP Nurse Practitioner; Visit Provider Nurse Practitioner
DX: E78.5 Hyperlipidemia, unspecified (principal); R73.02 Impaired glucose tolerance (oral)
CPT/HCPCS: 36415; 80053; 80061; 83036

== ENCOUNTER 2023-07-30 08:26 | Outpatient (CLI) | payer BC, SELFPAY ==
--- NOTE | ~2023-07-30 | XR_ITS ---
EXAMINATION: XR hip RT min 2V DATE: 07/30/2023 08:54 INDICATION: Right hip pain. TECHNIQUE: 2 views of right hip were obtained. COMPARISON: None. FINDINGS: Alignment is normal. No fracture. There is mild right hip osteoarthritis. IMPRESSION: 1. Mild right hip osteoarthritis. Reviewed, dictated and finalized at location E.
== END 2023-07-30 08:27 ==
PROVIDERS: PCP Nurse Practitioner; Visit Provider Nurse Practitioner
DX: M16.11 Unilateral primary osteoarthritis, right hip (principal)
CPT/HCPCS: 73502

== ENCOUNTER 2024-04-29 07:17 | Outpatient (CLI) | payer MEDICARE, BC, SELFPAY ==
[2024-04-29 07:43] LABS: Hematocrit 43.2 % (42.0-52.0); Hemoglobin 14.4 g/dL (14.0-18.0); Mean Corpuscular HGB Conc 33.3 g/dl (32-36); Mean Corpuscular Hemoglobin 30.7 pg (26-34); Mean Corpuscular Volume 92.1 fl (80-100); Mean Platelet Volume 9.5 fl (7.4-10.4); Platelet Count Result 248 k/mm3 (150-375); Red Blood Count 4.69 M/mm3 (4.6-6.20); Red Cell Distribution Width 12.6 % (11.5-14.5); White Blood Count 6.5 K/mm3 (4.5-10.0)
[2024-04-29 08:04] LABS: Alanine Aminotransferase 24 U/L (6-50); Albumin Level 4.3 g/dL (3.5-5.1); Alkaline Phosphatase 56 U/L (38-126); Anion Gap 7 mmol/L (4-12); Aspartate Amino Transferase 24 U/L (17-59); Bilirubin,Total 0.6 mg/dL (0.2-1.3); Blood Urea Nitrogen 11 mg/dL (9-20); Calcium 9.3 mg/dL (8.4-10.2); Carbon Dioxide 28 mmol/L (22-30); Chloride 104 mmol/L (98-107); Cholesterol 184 mg/dL (0-200); Estimated Glomerular Filt Rate > 60; Glucose 107 mg/dL (65-110); HDL Direct 55 mg/dL; Potassium 4.2 mmol/L (3.4-5.0); Sodium 139 mmol/L (137-145); Triglycerides 110 mg/dL (<150)
[2024-04-29 08:05] LABS: Hemoglobin A1C 5.9 % (<5.7)
[2024-04-29 08:15] LABS: LDL Cholesterol Direct 107 mg/dL
== END 2024-04-29 07:18 | disposition home or self-care (01) ==
PROVIDERS: PCP Nurse Practitioner; Visit Provider Nurse Practitioner
DX: E78.5 Hyperlipidemia, unspecified (principal); R73.02 Impaired glucose tolerance (oral)
CPT/HCPCS: 36415; 80053; 80061; 83036; 84443; 85027

== ENCOUNTER 2024-10-17 10:40 | Emergency (ER) | payer MEDICARE, BC, SELFPAY ==
--- NOTE | 2024-10-17 10:43 | ED_ITS ---
HPI - General Adult General Chief complaint: Skin/Abscess/Foreign Body Stated complaint: Insect Bite Time Seen by Provider: 10/17/24 10:42 Source: patient Mode of arrival: ambulatory Limitations: no limitations History of Present Illness HPI narrative: 78-year-old male patient presents to the [facility] with complaints of insect bites to the right arm. Patient states he came in contact with a wasp nest on Friday and was stung multiple times on his right arm. Patient states he has been taking Benadryl every 4 hours and putting ice on the arms to help with the itching. Patient states he is here today because he continues to have ongoing itching. Denies any trouble breathing. Denies any swelling to the throat, sore throat or trouble swallowing. Related Data Home Medications ?Medication ?Instructions ?Recorded ?Confirmed ?Last Taken ?Type zdpwodug-bfp-nrssr acid 500 1 tablet PO DAILY 06/03/19 05/09/24 06/03/19 09:00 History mcg-lycopene 300 mcg-lutein 250 mcg tablet (Complete Multi 50+) omega 9-guh-brp-fish oil 1,000 mg 1 cap PO DAILY 06/03/19 05/09/24 06/03/19 09:00 History (120 mg-180 mg) capsule (Fish Oil) tamsulosin 0.4 mg capsule (Flomax) 0.4 mg PO DAILY 05/01/23 05/09/24 Unknown History Allergies Allergy/AdvReac Type Severity Reaction Status Date / Time No Known Allergies Allergy Unknown Verified 10/17/24 10:40 Review of Systems Review of Systems: CONSTITUTIONAL: Denies fever, chills, or sweats. EYES: Denies visual changes, redness, or discharge. ENT: Denies rhinorrhea, congestion, sore throat, or otalgia. CARDIOVASCULAR: Denies chest pain, palpitations, or edema. RESPIRATORY: Denies cough or dyspnea. GASTROINTESTINAL: Denies abdominal pain, nausea, vomiting, or diarrhea. GENITOURINARY: Denies dysuria or hematuria. SKIN: Positive insect bites to right arm with itching MUSCULOSKELETAL: Denies back pain, joint pain, or myalgia. NEUROLOGIC: Denies headache, numbness, or weakness. PSYCHIATRIC: Denies anxiety or depression. [facility] Past Medical History Medical History BMI 34.0-34.9,adult Sciatica Right hip pain Right shoulder injury Dyslipidemia, goal LDL below 100 Essential (primary) hypertension Resolved after losing 100 lb Obstructive sleep apnea (adult) (pediatric) Patient had a repeat sleep study after losing 100 lb. His last sleep study May 2016 was negative for sleep apnea Overweight (10/03/16) Prediabetes Umbilical hernia Hypercholesterolemia BPH (benign prostatic hyperplasia) Surgical History Surgical History History of laparoscopic cholecystectomy Social History Social History Social History: Primary care provider: Rick Mcginnis NP Code status: Full code Smoking status: Never smoker Second hand tobacco smoke exposure: Yes Alcohol intake: current Drinks per week: 1 Alcohol use details: 1 beer a month. Substance use: never Substance use type: does not use Do You Feel Safe in your Home?: Yes Lack of Transportation: No Lack of Food: Never True Current Housing: I Have Housing Concerned About Future Housing: No Difficulty Paying Gas/Electric Bills: No Difficulty Paying for Meds: No Currently Unemployed: No Education: High School Diploma/GED Difficulty w/ Childcare or Family Care: No Living arrangements: with family Occupation/Education: retired Additional occupation/education comments: He retired from the post office in 2001. Gender identity (if verbalized by the patient): Male Spiritual care concerns: No Agree to blood products: Yes Comments At the time of my signature I agree with nursing past medical history, surgical, social, and family history. There is no relevant family history pertinent to the presenting complaint. Exam Narrative: GENERAL: Well-appearing, well-nourished, and in no acute distress. HEAD: Normocephalic, atraumatic. EYES: PERRLA and EOMI. ENT: Nares clear, no rhinorrhea or epistaxis. Mucous membranes moist. NECK: Supple. No lymphadenopathy CHEST: Clear to auscultation. No respiratory distress. HEART: Regular rate and rhythm. No murmur heard. Normal peripheral pulses. ABDOMEN: Soft, nontender, nondistended, normal active bowel sounds. EXTREMITIES: Normal range of motion. No edema. SKIN: Warm, dry, no rash. Patient has multiple insect bites to the right lower forearm. Patient does have slight swelling as compared to the left arm noted but no open wounds, no drainage no evidence of infection. NEURO: No focal deficits. Alert and oriented x3. Course Course Level of Care: Express Care Visit Vital Signs Vital signs: Vital signs reviewed. Medical Decision Making MDM Narrative Medical decision making narrative: Discussed with patient that I will prescribe him a topical steroid ointments to help with the itching while it continues to heal. Discussed with patient to start backing off of the Benadryl and take a 24 hour antihistamine such as Zyrtec, Claritin or Dianne to help with the itching and may take Benadryl as needed at night as needed. Discussed with patient continue using cold compresses or ice to help with itching as well. Discussed with patient this which should resolve in the next couple of days. If patient starts to have trouble swallowing, coughing, trouble breathing highly recommend that goes to the ER for further evaluation and treatment right away. Differential Diagnosis Differential Diagnosis: Differential diagnosis: Abscess, cellulitis, hidradenitis, laceration, puncture wound. Critical Care Time Critical Care Time Critical Care Time: No Discharge Plan Discharge Clinical Impression: Insect bite of arm, right Patient Disposition: Home Condition: Stable Instructions: Antibiotic Form, Insect Bite or Sting (ED) Additional Instructions: Wash the area with soap and cool water only. Use skin creams/lotion or anti-itch medicine to reduce itchiness Avoid scratching when possible to prevent worsening of the condition and disruption of the skin that could lead to bacterial infection To relieve itching, place a cool washcloth or some ice over the area that itches, rather than scratching Follow up with primary care provider or seek ER if you have trouble breathing, become hoarse, or start wheezing, develop belly cramps, vomiting or feel dizzy. Patient Language: [place] Prescriptions: New triamcinolone acetonide 0.5 % cream 1 applic topical TID Qty: 15 0RF No Action tamsulosin [Flomax] 0.4 mg capsule 0.4 mg PO DAILY omega 5-hgo-vcr-fish oil [Fish Oil] 1,000 mg (120 mg-180 mg) Capsule 1 cap PO DAILY Complete Multi 50+ 500-300-250 mcg Tablet 1 tablet PO DAILY Follow-up/Referrals: Rick Mcginnis APRN [Primary Care Provider] - Time of Disposition: 11:07
[2024-10-17 10:45] VITALS: BP 153/73; PULSE 43; RESP 18; O2SAT 99
== END 2024-10-17 11:15 | disposition home or self-care (01) ==
PROVIDERS: Emergency Provider Nurse Practitioner Family; PCP Nurse Practitioner
DX: T63.461A Toxic effect of venom of wasps, accidental (unintentional), initial encounter (principal); E78.00 Pure hypercholesterolemia, unspecified; N40.0 Benign prostatic hyperplasia without lower urinary tract symptoms; R73.03 Prediabetes
CPT/HCPCS: 99213; G0463

== ENCOUNTER 2024-11-04 08:58 | Outpatient (CLI) | payer MEDICARE, BC, SELFPAY ==
[2024-11-04 09:58] LABS: Hemoglobin A1C 5.8 % (<5.7)
[2024-11-04 10:06] LABS: Alanine Aminotransferase 22 U/L (6-50); Albumin Level 4.4 g/dL (3.5-5.1); Alkaline Phosphatase 55 U/L (38-126); Anion Gap 8 mmol/L (4-12); Aspartate Amino Transferase 28 U/L (17-59); Bilirubin,Total 0.7 mg/dL (0.2-1.3); Blood Urea Nitrogen 17 mg/dL (9-20); Calcium 9.3 mg/dL (8.4-10.2); Carbon Dioxide 23 mmol/L (22-30); Chloride 106 mmol/L (98-107); Cholesterol 192 mg/dL (0-200); Estimated Glomerular Filt Rate > 60; Glucose 124 mg/dL (65-110); HDL Direct 51 mg/dL; Potassium 4.2 mmol/L (3.4-5.0); Sodium 137 mmol/L (137-145); Total Protein 7.2 g/dL (6.3-8.2); Triglycerides 111 mg/dL (<150)
[2024-11-04 10:21] LABS: Free T4 Free Thyroxine 1.13 ng/dL (0.78-2.19)
[2024-11-04 10:36] LABS: Thyroid Stimulating Hormone 3.800 uIU/mL (0.465-4.680)
== END 2024-11-04 08:59 | disposition home or self-care (01) ==
PROVIDERS: PCP Nurse Practitioner; Visit Provider Nurse Practitioner
DX: E78.5 Hyperlipidemia, unspecified (principal); R79.89 Other specified abnormal findings of blood chemistry; R73.02 Impaired glucose tolerance (oral)
CPT/HCPCS: 36415; 80053; 80061; 83036; 84439; 84443